=== PATIENT | female | born 1990 | race Hispanic/Latino ===

== ENCOUNTER 2018-01-05 21:21 | Emergency (ER) | payer SELFPAY ==
[~2018-01-05] VITALS: Ht 162.6 cm; Wt 98.0 kg
[2018-01-05] MEDS ORDERED: ACETAMINOPHEN 325 MG TAB PO ONE (21:45)
[2018-01-05] MEDS ORDERED: IBUPROFEN 400 MG TAB PO ONE (21:45)
[2018-01-06 00:32] VITALS: BP 129/88
== END 2018-01-06 00:20 | disposition home or self-care (01) ==
LOC: FSED 21:21
DX: R10.2 Pelvic and perineal pain (principal); R19.09 Other intra-abdominal and pelvic swelling, mass and lump
CPT/HCPCS: 76856; 81003; 81025; 99283